=== PATIENT | female | born 1935 | race Caucasian/White ===

== ENCOUNTER 2017-05-05 21:34 | Emergency (ER) | payer SELFPAY ==
[~2017-05-05] VITALS: Ht 165.1 cm; Wt 59.0 kg
[2017-05-05 22:00] VITALS: BP 145/90
== END 2017-05-05 23:30 | disposition left against medical advice (07) ==
LOC: ER 22:33 → EDBD 22:33 → ER 23:30
DX: Z53.21 Procedure and treatment not carried out due to patient leaving prior to being seen by health care provider (principal)